=== PATIENT | male | born 1975 | race Caucasian/White ===

== ENCOUNTER 2024-10-14 11:20 | Emergency (ER) | payer SELFPAY ==
[~2024-10-14] VITALS: Ht 167.6 cm; Wt 106.6 kg
[~2024-10-14 11:20] MED LIST: TORADOL10 MG PO
[2024-10-14] MEDS ORDERED: Lidocaine Hydrochloride 30 ML VIAL IM ONE (11:50)
[2024-10-14] MEDS ORDERED: MELOXICAM15 MG PO (12:14)
[2024-10-14] MEDS ORDERED: CEPHALEXIN500 M1 PO (12:14)
== END 2024-10-14 13:16 | disposition home or self-care (01) ==
LOC: ED 11:20
DX: S61.210A Laceration without foreign body of right index finger without damage to nail, initial encounter (principal); Z88.0 Allergy status to penicillin; W45.8XXA Other foreign body or object entering through skin, initial encounter; Y93.89 Activity, other specified; Y92.89 Other specified places as the place of occurrence of the external cause; Y99.8 Other external cause status